=== PATIENT | male | born 1985 | race American Indian/Alaskan Native ===

== ENCOUNTER 2018-05-09 08:38 | Emergency (ER) | payer SELFPAY ==
[2018-05-09 09:05] VITALS: BP 136/73
[2018-05-09] MEDS ORDERED: ANTIVERT PO ONE (09:27)
--- NOTE | 2018-05-09 09:37 | Emergency Department Report ---
Chief Complaint: Dizziness Stated Complaint: FEELING NERVOUS Time Seen by Provider: 05/09/18 09:27 - HPI History of Present Illness: 32-year-old [facility] male presents to the emergency department with complaint of feeling like he is rocking on a boat, while standing still, and is in the room is moving. He also has complaints of feeling jittery and/or anxious. He will sometimes wake up from sleep with the smallest sound and then says his heart start racing. He says he was diagnosed with something while in [place] and placed on some unknown medication that seemed to help but the symptoms returned. He returns to [place] in July. The patient also has some nonspecific urinary complaint that sounds similar to dysuria. - ROS Review of Systems: Positive for vertigo like symptoms, nervousness/jittery feeling Negative for fever, chest pain, nausea, vomiting, headache, vision change - Exam Vital Signs: Vital Signs 05/09/18 08:59 Temperature 98.1 F Pulse Rate 91 H Respiratory 18 Rate Blood Pressure 136/73 O2 Sat by Pulse 99 Oximetry Physical Exam: Heart and lungs sounds in all auscultation. Pupils equal reactive to light bilaterally. No nystagmus. Extraocular motion intact. No pronator drift. No dysmetria. MSE screening note: Focused history and physical exam performed. Due to findings the following was ordered: We are checking a urinalysis and the patient has been given an Antivert. ED Disposition for MSE Condition: Stable
[2018-05-09 10:15] LABS: Bilirubin,Urine NEG (Negative); Blood,Urine NEG (Negative); Color,Urine Yellow (Yellow); Protein,Urine <15 mg/dL mg/dL (Negative); Urobilinogen,Urine < 2.0 mg/dL (<2.0); WBC,Urine < 1.0 /HPF (0.0-6.0)
--- NOTE | 2018-05-09 10:42 | Emergency Department Report ---
HPI - General Chief Complaint: Dizziness Time Seen by Provider: 05/09/18 09:27 - HPI HPI: 32-year-old [facility] male presents to the emergency department with complaint of feeling like he is rocking on a boat, while standing still, and it feels like the room is moving. He also has complaints of feeling jittery and/or anxious. He will sometimes wake up from sleep with the smallest sound and then says his heart start racing. He says he was diagnosed with something while in [place] and placed on some unknown medication that seemed to help but the symptoms returned. He returns to [place] in July. The patient also has some nonspecific urinary complaint that sounds similar to dysuria. He denies any headache, vision change, slurred speech, chest pain or any neurological deficits. He denies any tobacco or illicit drug use or abuse. ED Past Medical Hx - Past Medical History Previous Medical History?: No - Surgical History Past Surgical History?: No - Social History Smoking Status: Never Smoker Substance Use Type: None - Medications Home Medications: Home Medications Medication Instructions Recorded Confirmed Last Taken Type Meclizine [Antivert] 25 mg PO TID PRN #16 tablet 05/09/18 Unknown Rx ED Review of Systems ROS: Stated complaint: FEELING NERVOUS Other details as noted in HPI Comment: All other systems reviewed and negative Constitutional: denies: chills, fever Eyes: denies: eye pain, eye discharge, vision change ENT: denies: ear pain, throat pain Respiratory: denies: cough, shortness of breath, wheezing Cardiovascular: denies: chest pain, edema Gastrointestinal: denies: abdominal pain, nausea, diarrhea Genitourinary: denies: urgency, dysuria Musculoskeletal: denies: back pain, joint swelling, arthralgia Skin: denies: rash, lesions Neurological: vertigo. denies: headache Psychiatric: other (jittery, nervousness). denies: depression Physical Exam - Physical Exam Vital Signs: Vital Signs 05/09/18 08:59 Temperature 98.1 F Pulse Rate 91 H Respiratory 18 Rate Blood Pressure 136/73 O2 Sat by Pulse 99 Oximetry Physical Exam: GENERAL: The patient is well-developed well-nourished. HENT: Normocephalic. Atraumatic. Patient has moist mucous membranes. EYES: Extraocular motions are intact. Pupils equal reactive to light bilaterally. No nystagmus. NECK: Supple. Trachea is midline. CHEST/LUNGS: Clear to auscultation. There is no respiratory distress noted. HEART/CARDIOVASCULAR: Regular. There is no tachycardia. There is no murmur. ABDOMEN: Abdomen is soft, nontender. Patient has normal bowel sounds. There is no abdominal distention. SKIN: Skin is warm and dry. NEURO: The patient is awake, alert, and oriented. The patient is cooperative. The patient has no focal neurologic deficits. The patient has normal speech and gait. Cranial nerves II through XII grossly intact. No dysmetria. No pronator drift. MUSCULOSKELETAL: There is no tenderness or deformity. There is no limitation range of motion. There is no evidence of acute injury. ED Course Vital Signs 05/09/18 08:59 Temperature 98.1 F Pulse Rate 91 H Respiratory 18 Rate Blood Pressure 136/73 O2 Sat by Pulse 99 Oximetry ED Medical Decision Making - Medical Decision Making Regarding the patient's complaints of feeling like the room is spinning or feeling like he is standing on a boat when he is still, it sounds like vertigo- like symptoms. On examination he does not have any focal, motor or sensory deficits and his cranial nerves are intact. There is no pronator drift or dysmetria. The patient is seen ambulatory and appears stable. For all these reasons I did not feel that CT imaging of the head was necessary at this time. He was given a dose of Antivert and rechecked about one hour later and says that he is feeling improved. Regarding the feelings of jitteriness and/or nervousness, this could be some level of anxiety, but the patient does not appear to have anything that he is particularly anxious about. He does not appear to be having any panic attacks. He is calm and appropriate and I believe he can follow up outpatient with someone regarding these feelings. The patient also had some nonspecific complaint of trouble urinating or some mild discomfort when going. He had no difficulty leaving a urine sample and it was tested and does not appear to show any signs of urinary tract infection. His vital signs are stable throughout his course. He appears safe for discharge home at this time. He was given referrals for primary care clinics and the [facility]. He was encouraged to return to the emergency Department with any worsening of his symptoms are any acute distress. - Differential Diagnosis anxiety, UTI, vertigo, orthostatic hypotension, vasovagal Critical Care Time: No Critical care attestation.: If time is entered above; I have spent that time in minutes in the direct care of this critically ill patient, excluding procedure time. ED Disposition Clinical Impression: Vertigo, Jittery feeling, Nervousness Disposition: DC- TO HOME OR SELFCARE Is pt being admited?: No Condition: Stable Instructions: Vertigo (ED), Dizziness (ED), Anxiety (ED) Additional Instructions: Please follow up with a primary care in the next few days. I have given you multiple primary care clinics in the area. Take the Antivert/meclizine as needed for that vertigo sensation, as if the room is spinning or you are standing on a boat. Return to the emergency Department with any worsening of her symptoms, headache, slurred speech, vision change, chest pain, or any acute distress. Prescriptions: Meclizine [Antivert] 25 mg PO TID PRN #16 tablet PRN Reason: Vertigo Referrals: PRIMARY CARE, [Primary Care Provider] - 3-5 Days [facility] [Outside] - 3-5 Days [facility] [Outside] - 3-5 Days [facility] [Outside] - 3-5 Days Time of Disposition: 10:42
== END 2018-05-09 10:50 | disposition home or self-care (01) ==
LOC: ED 08:38
DX: R42 Dizziness and giddiness (principal); R45.0 Nervousness
CPT/HCPCS: 81001; 99283

== ENCOUNTER 2018-05-30 09:15 | Emergency (ER) | payer SELFPAY ==
[2018-05-30 09:34] VITALS: BP 145/78
[2018-05-30] MEDS ORDERED: TORADOL IM ONE (11:22)
--- NOTE | 2018-05-30 11:33 | Emergency Department Report ---
ED Neck Pain/Injury HPI - General Chief Complaint: Neck Pain/Injury Stated Complaint: NECK PAIN Time Seen by Provider: 05/30/18 11:14 Mode of arrival: Ambulatory Limitations: No Limitations - History of Present Illness Initial Comments: This is a 32-year-old male nontoxic, well nourished in appearance, no acute signs of distress presents to the ED with c/o of acute on chronic neck back pain. Patient stated that the past 2 days he was moving and lifting at work prior this pain. Patient states has history of similar pain x5 months. Patient denies any radiation of pain. Patient denies any trauma. Denies any bladder or bowel instability. Patient denies any urinary symptoms. Denies any fever, chills, nausea, vomiting, headache, stiff neck, chest pain or shortness of breath. Patient denies any numbness or tingling. Denies any allergies. Denies significant past medical history. MD Complaint: neck pain, upper back pain -: month(s) (5) Place: home Severity: mild Severity scale (0 -10): 8 Quality: aching Consistency: intermittent Improves With: none Worsens With: none Associated Symptoms: none. denies: headache, fever, numbness, tingling, weakness, vertigo, difficulty walking, swollen glands, difficulty swallowing, nausea, vomiting Treatments Prior to Arrival: none - Related Data Previous Rx's Medication Instructions Recorded Last Taken Type Meclizine [Antivert] 25 mg PO TID PRN #16 tablet 05/09/18 Unknown Rx Cyclobenzaprine [Flexeril] 10 mg PO BID PRN #14 tablet 05/30/18 Unknown Rx Ibuprofen [Motrin] 600 mg PO Q8H PRN #30 tablet 05/30/18 Unknown Rx Allergies Allergy/AdvReac Type Severity Reaction Status Date / Time No Known Allergies Allergy Unverified 05/09/18 09:05 ED Review of Systems ROS: Stated complaint: NECK PAIN Other details as noted in HPI Constitutional: denies: chills, fever Eyes: denies: eye pain, eye discharge, vision change ENT: denies: ear pain, throat pain Respiratory: denies: cough, shortness of breath, wheezing Cardiovascular: denies: chest pain, palpitations Endocrine: no symptoms reported Gastrointestinal: denies: abdominal pain, nausea, diarrhea Genitourinary: denies: urgency, dysuria Musculoskeletal: back pain. denies: joint swelling, arthralgia Skin: denies: rash, lesions Neurological: denies: headache, weakness, paresthesias Psychiatric: denies: anxiety, depression Hematological/Lymphatic: denies: easy bleeding, easy bruising ED Past Medical Hx - Past Medical History Previous Medical History?: No - Surgical History Past Surgical History?: No - Social History Smoking Status: Never Smoker Substance Use Type: None - Medications Home Medications: Home Medications Medication Instructions Recorded Confirmed Last Taken Type Meclizine [Antivert] 25 mg PO TID PRN #16 tablet 05/09/18 Unknown Rx Cyclobenzaprine [Flexeril] 10 mg PO BID PRN #14 tablet 05/30/18 Unknown Rx Ibuprofen [Motrin] 600 mg PO Q8H PRN #30 tablet 05/30/18 Unknown Rx ED Physical Exam - General Limitations: No Limitations General appearance: alert, in no apparent distress - Head Head exam: Present: atraumatic, normocephalic - Eye Eye exam: Present: normal appearance, PERRL, EOMI Pupils: Present: normal accommodation - ENT ENT exam: Present: normal exam, mucous membranes moist - Neck Neck exam: Present: normal inspection, full ROM. Absent: tenderness, meningismus, lymphadenopathy - Respiratory Respiratory exam: Present: normal lung sounds bilaterally. Absent: respiratory distress, wheezes, rales, rhonchi, stridor, chest wall tenderness, accessory muscle use, decreased breath sounds, prolonged expiratory - Cardiovascular Cardiovascular Exam: Present: regular rate, normal rhythm, normal heart sounds. Absent: irregular rhythm, systolic murmur, diastolic murmur, rubs, gallop - GI/Abdominal GI/Abdominal exam: Present: soft, normal bowel sounds - Rectal Rectal exam: Present: deferred - Extremities Exam Extremities exam: Present: normal inspection, full ROM, normal capillary refill - Back Exam Back exam: Present: normal inspection, full ROM, paraspinal tenderness (left paracervical region). Absent: tenderness, CVA tenderness (R), CVA tenderness (L ), muscle spasm, vertebral tenderness, rash noted - Expanded Back Exam Expanded Back exam: Absent: saddle anesthesia Back exam: Negative Straight Leg Raising: Right, Left - Neurological Exam Neurological exam: Present: alert, oriented X3, CN II-XII intact, normal gait - Expanded Neurological Exam Expanded Patient oriented to: Present: person, place, time Cranial nerves: Facial Sensation: Normal Cerebellar function: Finger to Nose: Normal Upper motor neuron: Pronator Drift: Normal, Sensory Extinction: Normal Sensory exam: Upper Extremity Light Touch: Normal, Upper Extremity Pin Prick: Normal, Upper Extremity Temperature: Normal, UE 2 Point Discrimination: Normal, Lower Extremity Light Touch: Normal, Lower Extremity Pin Prick: Normal, Lower Extremity Temperature: Normal, LE 2 Point Discrimination: Normal Motor strength exam: RUE: 5, LUE: 5, RLE: 5, LLE: 5 Best Eye Response (Vining): (4) open spontaneously Best Motor Response (Magdi): (6) obeys commands Best Verbal Response (Magdi): (5) oriented Magdi Total: 15 - Psychiatric Psychiatric exam: Present: normal affect, normal mood - Skin Skin exam: Present: warm, dry, intact, normal color. Absent: rash ED Course Vital Signs 05/30/18 09:25 Temperature 98.5 F Pulse Rate 97 H Respiratory 16 Rate Blood Pressure 145/78 O2 Sat by Pulse 99 Oximetry - Reevaluation(s) Reevaluation #1: 05/30/18 11:35 Patient is speaking in full sentences with no signs of distress noted. ED Medical Decision Making - Medical Decision Making This is a 32-year-old male that presents with cervical muscle strain. Patient is stable was examined by me. There is no spinal tenderness. There is no cauda equina syndrome during examination. No bladder or bowel instability. Patient received Toradol 60 mg IM in the ED which preceded his symptoms has resolved and subsided. Patient is discharged with muscle relaxant and Motrin. Patient was instructed not to operate any machinery while taking muscle relaxant as they cause her drowsiness. Patient was referred to Follow-up with a primary care doctor in 3-5 days or if symptoms worsen and continue return to emergency room as soon as possible. At time of discharge, the patient does not seem toxic or ill in appearance. No acute signs of distress noted. Patient agrees to discharge treatment plan of care. No further questions noted by the patient. This chart is dictated with using [employer] Dictation Program Critical care attestation.: If time is entered above; I have spent that time in minutes in the direct care of this critically ill patient, excluding procedure time. ED Disposition Clinical Impression: Cervical muscle strain Qualifiers: Encounter type: initial encounter Qualified Code(s): S16.1XXA - Strain of muscle, fascia and tendon at neck level, initial encounter Disposition: TO HOME OR SELFCARE Is pt being admited?: No Does the pt Need Aspirin: No Condition: Stable Instructions: Muscle Strain (ED), Cyclobenzaprine (By mouth), Ibuprofen (By mouth) Additional Instructions: Follow-up with your primary care doctor in 3-5 days or if symptoms worsen such as bladder or bowel stability, chest pain, short of breath, numbness or tingling sensation in extremities, headache, dizziness, visual changes, nausea vomiting, or abdominal pain, return back to emergency room as was possible. Take ibuprofen and Flexeril as prescribed. Do not operate heavy machinery while taking Flexeril due to sedation Prescriptions: Cyclobenzaprine [Flexeril] 10 mg PO BID PRN #14 tablet PRN Reason: Muscle Spasm Ibuprofen [Motrin] 600 mg PO Q8H PRN #30 tablet PRN Reason: Pain Referrals: PRIMARY CAREMD [Primary Care Provider] - 3-5 Days TISH BRENNER MD [Staff Physician] - 3-5 Days [facility] [Outside] - 3-5 Days [facility] [Outside] - 3-5 Days Forms: Work/School Release Form(ED)
== END 2018-05-30 11:55 | disposition home or self-care (01) ==
LOC: ED 09:15
DX: S16.1XXA Strain of muscle, fascia and tendon at neck level, initial encounter (principal); M54.89 Other dorsalgia; G89.29 Other chronic pain; X50.9XXA Other and unspecified overexertion or strenuous movements or postures, initial encounter; Y93.89 Activity, other specified; Y99.0 Civilian activity done for income or pay; Y92.89 Other specified places as the place of occurrence of the external cause
CPT/HCPCS: 96372; 99282; J1885

== ENCOUNTER 2018-06-02 10:53 | Emergency (ER) | payer OTHER ==
--- NOTE | 2018-06-02 11:30 | Emergency Department Report ---
ED Dizziness HPI - General Chief Complaint: Dizziness Stated Complaint: DIZZINESS Time Seen by Provider: 06/02/18 11:22 Source: patient Mode of arrival: Ambulatory Limitations: No Limitations - History of Present Illness Initial Comments: This is a 32-year-old patient here reports that he is having dizziness and feeling like room is spinning around when he stands up. Denies any headache or blurred vision. He was here on 05/30/2018 and was treated for neck pain with Flexeril and ibuprofen which he said he completed. He was also here on 2017 and was seen by Dr. Maher and was diagnosed with vertigo and was placed on Antivert which he said made him feel better. Patient said he went to [facility] but he was too expensive. Patient is visiting from [place] and he reports that he's been having this problem for over 8 months and he went to a doctor in [place] and he told him that it was sinus related and given some pills which didn't help. Denies any nausea or vomiting. He still reports neck pain at 5 out of 10 intermittent. Feels achy to the sides of his neck. Denies any numbness or treatment to extremities. Denies any facial pain or pressure. Patient said that he thinks it's a possible allergic reaction from the Flexeril but he is not sure. He had no previous CT scan done. Neck pain is alleviated with Motrin. No exacerbating factors. Denies any history of arthritis. MD Complaint: dizziness, lightheadedness, other (neck pain ) Onset/Timin -: month(s) Timing: intermittent, waxing/waning Description: sense of movement, "room spinning", off-balance History of Same: Yes History of Trauma: No Severity: moderate (6/10 neck) Improves With: medication Worsens With: movement, position Associated Symptoms: denies: ataxia, chest pain, confusion, cough, diaphoresis, fever/chills, loss of appetite, malaise, rash, seizure, shortness of breath, syncope, weakness - Related Data Previous Rx's Medication Instructions Recorded Last Taken Type Cyclobenzaprine [Flexeril] 10 mg PO BID PRN #14 tablet 05/30/18 Unknown Rx Ibuprofen [Motrin] 600 mg PO Q8H PRN #30 tablet 05/30/18 Unknown Rx Cetirizine HCl [ZyrTEC] 10 mg PO QAM 14 Days #14 capsule 06/02/18 Unknown Rx Fluticasone [Flonase] 1 spray NS QDAY 14 Days #1 bottle 06/02/18 Unknown Rx Meclizine [Antivert] 25 mg PO TID PRN #21 tablet 06/02/18 Unknown Rx Allergies Allergy/AdvReac Type Severity Reaction Status Date / Time No Known Allergies Allergy Unverified 05/09/18 09:05 ED Review of Systems ROS: Stated complaint: DIZZINESS Other details as noted in HPI Constitutional: denies: chills, fever Eyes: denies: eye pain, eye discharge, vision change ENT: denies: ear pain, throat pain, dental pain, congestion Respiratory: denies: cough, shortness of breath, SOB with exertion, SOB at rest , stridor, wheezing Cardiovascular: denies: chest pain, palpitations, dyspnea on exertion, edema, syncope, paroxysmal nocturnal dyspnea Gastrointestinal: denies: abdominal pain, nausea, vomiting, diarrhea Musculoskeletal: myalgia. denies: back pain, joint swelling, arthralgia Skin: denies: rash, lesions Neurological: vertigo. denies: headache, weakness, numbness, paresthesias, confusion, abnormal gait Psychiatric: denies: anxiety, depression ED Past Medical Hx - Past Medical History Previous Medical History?: Yes Additional medical history: Neck pain. Vertigo - Surgical History Past Surgical History?: No - Family History Family history: hypertension - Social History Smoking Status: Never Smoker Substance Use Type: Prescribed - Medications Home Medications: Home Medications Medication Instructions Recorded Confirmed Last Taken Type Cyclobenzaprine [Flexeril] 10 mg PO BID PRN #14 tablet 05/30/18 Unknown Rx Ibuprofen [Motrin] 600 mg PO Q8H PRN #30 tablet 05/30/18 Unknown Rx Cetirizine HCl [ZyrTEC] 10 mg PO QAM 14 Days #14 capsule 06/02/18 Unknown Rx Fluticasone [Flonase] 1 spray NS QDAY 14 Days #1 bottle 06/02/18 Unknown Rx Meclizine [Antivert] 25 mg PO TID PRN #21 tablet 06/02/18 Unknown Rx ED Physical Exam - General Limitations: No Limitations General appearance: alert, in no apparent distress - Head Head exam: Present: atraumatic, normocephalic, normal inspection, other (normal exam) - Eye Eye exam: Present: normal appearance, PERRL, EOMI. Absent: nystagmus Pupils: Present: normal accommodation - ENT ENT exam: Present: normal orophraynx, mucous membranes moist, normal external ear exam, other (lateral nasal mucosa pale and boggy with clear drainage. Maxillary and frontal sinus nontender to palpate). Absent: TM's normal bilaterally (bilateral TM congested without erythema.) - Neck Neck exam: Present: normal inspection, full ROM, other (no C-spine tenderness). Absent: tenderness, meningismus, lymphadenopathy, thyromegaly - Respiratory Respiratory exam: Present: normal lung sounds bilaterally. Absent: respiratory distress, chest wall tenderness - Cardiovascular Cardiovascular Exam: Present: regular rate, normal rhythm, normal heart sounds. Absent: systolic murmur, diastolic murmur - GI/Abdominal GI/Abdominal exam: Present: soft, normal bowel sounds. Absent: distended, tenderness, guarding, rebound, rigid - Extremities Exam Extremities exam: Present: normal inspection, full ROM, normal capillary refill , other (no clubbing, cyanosis or edema. Pulses plus systolic extremities and no neurovascular compromise). Absent: tenderness, pedal edema, joint swelling, calf tenderness - Back Exam Back exam: Present: normal inspection, full ROM, other (ambulatory without any difficulties). Absent: tenderness - Neurological Exam Neurological exam: Present: alert, oriented X3, normal gait, reflexes normal. Absent: motor sensory deficit - Expanded Neurological Exam Expanded Neurological exam: Absent: innattentive, memory loss-remote event, memory loss- recent event, ataxia, receptive aphasia, expressive aphasia, total aphasia, tremor, protecting the airway Patient oriented to: Present: person, place, time Speech: Present: fluid speech Cranial nerves: EOM's Intact: Normal, Gag Reflex: Normal, Tongue Deviation: Normal, Nystagmus: Normal, Facial Sensation: Normal Cerebellar function: Romberg: Normal Upper motor neuron: Henri Neglect: Normal, Pronator Drift: Normal, Sensory Extinction: Normal Sensory exam: Upper Extremity Light Touch: Normal, Upper Extremity Pin Prick: Normal, Upper Extremity Temperature: Normal, UE 2 Point Discrimination: Normal, Lower Extremity Light Touch: Normal, Lower Extremity Pin Prick: Normal, Lower Extremity Temperature: Normal, LE 2 Point Discrimination: Normal Motor strength exam: RUE: 5, LUE: 5, RLE: 5, LLE: 5 Best Eye Response ([place]): (4) open spontaneously Best Motor Response ([place]): (6) obeys commands Best Verbal Response (Magdi): (5) oriented Magdi Total: 15 - Psychiatric Psychiatric exam: Present: normal affect, normal mood - Skin Skin exam: Present: warm, dry, intact, normal color. Absent: rash ED Course Vital Signs 06/02/18 11:11 Temperature 99 F Pulse Rate 94 H Respiratory 18 Rate Blood Pressure 133/87 O2 Sat by Pulse 98 Oximetry - Reevaluation(s) Reevaluation #1: 06/02/18 12:47 Patient given Antivert 25 mg by mouth. He was orally hydrated in the emergency room and he said he still embedded. ED Medical Decision Making - Lab Data Result diagrams: 06/02/18 11:33 - Radiology Data Radiology results: report reviewed CT scan of the head without contrast dictated by radiologist and reported myself. See report below. Patient: CLAUDIO SCHMIDT MR#: [id number] : 1985 Acct:[id number] Age/Sex: 32 / M ADM Date: 06/02/18 Loc: ED Attending Dr: Ordering Physician: MARYANA JIMENEZ Date of Service: 06/02/18 Procedure(s): CT head/brain wo con Accession Number(s): [id number] cc: MARYANA JIMENEZ CT HEAD WITHOUT CONTRAST INDICATION: Dizziness. COMPARISON: None similar at this institution. FINDINGS: Noncontrast head CT demonstrates normal, symmetric ventricles and sulci without acute or recent infarct, hemorrhage, mass effect or midline shift. No abnormal extra-axial fluid collections. Posterior fossa structures and basilar cisterns within normal limits. Symmetric eye globes. Clear paranasal sinuses and mastoid air cells. Intact calvarium. Normal overlying scalp soft tissues. Possibly unerupted mandibular wisdom tooth incidentally noted. CONCLUSION: No acute intracranial CT abnormality, as described. Thank you for the opportunity to participate in this patient's care. Transcribed By: RS Dictated By: JACKSON DUARTE MD Electronically Authenticated By: JACKSON DUARTE MD Signed Date/Time: 06/02/18 1201 DD/ 1159 TD/TT: 06/02/18 1201 - Medical Decision Making ED course This is a 32-year-old male presents to emergency room with dizziness and chronic neck pain. This started a month ago and is being seen by physician 3 over the last 3 months. He was seen here 2 times and was treated once for neck pain and another time for vertigo. Patient took Antivert in the past which she said helped with feeling of vertigo. He had no previous CT scan of the head done. Patient is here for complaint of dizziness with feeling of room is spinning without any headache or blurred vision. Denies any nausea or vomiting. He is also complaining of neck pain which she is being treated for before. Patient here to be evaluated again. She was seen and evaluated by myself. He is neurologically intact with normal neck exam. Physical findings for allergic rhinitis with suggestion of bilateral TM and nasal mucosa pale and boggy with clear drainage. BMP stable findings, CT scan of the head without contrast dictated by radiologist report reviewed by myself and this shows no acute intracranial or extracranial abnormalities except possible interruption of mandibular wisdom tooth which is an incidental finding. This was explained to patient along with lab results on the fourth understanding. I discussed with him that he needs to follow up with a neurologist and also primary care physician. Dizziness resolved with Antivert. A/P 1: Vertigo-Antivert 25 mg by mouth given times one emergency room and vertigo is resolved. We will discharge patient home on Antivert. BMP is normal 2: Neck pain-musculoskeletal in nature and this is chronic and patient has been seen for this in the past. I will for him to primary care. 3: Rhinitis-will discharge home on Flonase and Zyrtec Patient educated on diagnosis, CT scan results, lab results and need to follow up with specialist. Any voiced understanding referral to neurologist and primary care Patient discharged home in safe condition with prescription for Antivert, Zyrtec and Flonase. Vital signs are stable and is afebrile. Patient is nontoxic in appearance and said he feels better. I discussed with him that if his condition worsens return to emergency room otherwise follow-up with neurologist and saw [facility] as he doesn't have a primary care doctor. He voiced understanding - Differential Diagnosis intracranial abnormality, sinusitis, vestibular imbalance, rhinitis Critical care attestation.: If time is entered above; I have spent that time in minutes in the direct care of this critically ill patient, excluding procedure time. ED Disposition Clinical Impression: Vertigo, Neck pain, bilateral Rhinitis Qualifiers: Rhinitis type: unspecified Qualified Code(s): J31.0 - Chronic rhinitis Disposition: TO HOME OR SELFCARE Is pt being admited?: No Does the pt Need Aspirin: No Condition: Stable Instructions: Musculoskeletal Pain (ED), Vertigo (ED), Allergic Rhinitis (ED) Additional Instructions: Please take Zyrtec and Flonase for allergic rhinitis Take Antivert for dizziness Increase her fluid intake Follow-up with [facility] and neurologists as discussed. Follow-up with dentist as requested referral. If your condition worsens, return to emergency room. Prescriptions: Cetirizine HCl [ZyrTEC] 10 mg PO QAM 14 Days #14 capsule Fluticasone [Flonase] 1 spray NS QDAY 14 Days #1 bottle Meclizine [Antivert] 25 mg PO TID PRN #21 tablet PRN Reason: Vertigo Referrals: [facility] [Outside] - 06/06/18 [facility] [Outside] - 06/06/18 MANDEEP ROCK MD [Staff Physician] - 06/06/18
[2018-06-02] MEDS ORDERED: ANTIVERT PO ONE (11:31)
--- NOTE | 2018-06-02 12:09 | Cat Scan Report ---
CT HEAD WITHOUT CONTRAST INDICATION: Dizziness. COMPARISON: None similar at this institution. FINDINGS: Noncontrast head CT demonstrates normal, symmetric ventricles and sulci without acute or recent infarct, hemorrhage, mass effect or midline shift. No abnormal extra-axial fluid collections. Posterior fossa structures and basilar cisterns within normal limits. Symmetric eye globes. Clear paranasal sinuses and mastoid air cells. Intact calvarium. Normal overlying scalp soft tissues. Possibly unerupted mandibular wisdom tooth incidentally noted. CONCLUSION: No acute intracranial CT abnormality, as described. Thank you for the opportunity to participate in this patient's care.
[2018-06-02 12:13] LABS: BUN/Creatinine Ratio 14; Blood Urea Nitrogen 13 mg/dL (9-20); Calcium 9.3 mg/dL (8.4-10.2); Hemolysis Index 13
[2018-06-02 13:32] VITALS: BP 136/76
== END 2018-06-02 13:30 | disposition home or self-care (01) ==
LOC: ED 10:53
DX: R42 Dizziness and giddiness (principal); M54.2 Cervicalgia; J31.0 Chronic rhinitis
CPT/HCPCS: 36415; 70450; 80048

== ENCOUNTER 2018-06-04 07:36 | Emergency (ER) | payer SELFPAY ==
[2018-06-04 08:32] VITALS: BP 141/79
--- NOTE | 2018-06-04 10:21 | Emergency Department Report ---
Chief Complaint: Neck Pain/Injury Stated Complaint: TINGLING IN FINGERS Time Seen by Provider: 06/04/18 10:10 - HPI History of Present Illness: Patient is a 32-year-old [place] gentleman who has been in our country 3 months visiting on a visa who is here for multiple complaints. Patient states he has some burning sensations neck and has some clicking sound when he turns his neck from side to side. This is been going on for several months. The patient states he has some tingling in his bilateral hands. Patient also states he feels some fatigue and generalized aches and pains as well. Patient has been to the emergency department numerous times for same complaint. Patient states that at one point he was having some mild dizziness with this is improved after taken Antivert. Patient is convinced that he has shingles internally. The patient has had a history of shingles on the left flank partially a year ago which is resolved with the patient's thinks that his symptoms are from shingles occurring within his body. - ROS Review of Systems: All other systems reviewed and are negative - Exam Vital Signs: Vital Signs 06/04/18 08:28 Temperature 98.4 F Pulse Rate 85 Respiratory 16 Rate Blood Pressure 141/79 O2 Sat by Pulse 98 Oximetry Physical Exam: Brief focused physical exam patient's heart tones are within normal limits lungs are clear to auscultation his abdomen is soft and nontender. Skin exam is no rash present. Patient does have some mild crepitus when he turns his head from side to side. MSE screening note: Focused history and physical exam performed. Due to findings the following was ordered: ED Medical Decision Making - Medical Decision Making She clinically has a cervical radiculopathy. Patient is not medical emergency at this time is a chronic issue. Patient will be referred to orthopedics as well as [facility]. Patient advised to take Motrin over-the- counter for pain. ED Dis[place] [facility] Impression: Cervical radiculopathy Disposition: MED SCREENING EXAM-LEFT Is pt being admited?: No Does the pt Need Aspirin: No Condition: Stable Instructions: Cervical Radiculopathy (ED) Additional Instructions: Please take Motrin or Aleve [id number] for pain. Also using any ice pack on the neck may improve symptoms. Referrals: RINA CHRISTOPHER MD [Staff Physician] - 3-5 Days [facility] [Outside] - 3-5 Days
== END 2018-06-04 10:29 | disposition left against medical advice (07) ==
LOC: ED 07:36
DX: M54.12 Radiculopathy, cervical region (principal); R42 Dizziness and giddiness
CPT/HCPCS: 99282